=== PATIENT | male | born 1955 | race Caucasian/White ===

== ENCOUNTER 2025-02-22 13:45 | Outpatient (CLI) | payer OTHER, SELFPAY ==
--- NOTE | 2025-02-22 14:30 | NEURO_ITS ---
Impression: # Complains of numbness and pain in right lower extremity. ? # Right Posterior Tibial Neuropathy. ? # Right Superficial Peroneal sensory neuropathy. ? # Normal needle/EMG. Nerve Conduction Studies ?Stim Site NR Peak (ms) P-T Amp (?V) Site1 Site2 Delta-P (ms) Dist (cm) Evaristo (m/s) Right Sup Fibular Anti Sensory (Ant Lat Mall)??? NO RESPONSE 14 cm NR 14 cm Ant Lat Mall 16.0 Right Sural Anti Sensory (Lat Mall) Calf ? 3.6 3.8 Calf Lat Mall 3.6 16.0 44 ?Stim Site NR Onset (ms) O-P Amp (mV) Site1 Site2 Delta-0 (ms) Dist (cm) Evaristo (m/s) Right Peroneal Motor (Vastus Med) Ankle ? 3.6 4.2 Popit Ankle 9.2 42.0 46 Popit ? 12.8 2.9 Right Tibial Motor (Abd Tovar Brev) Ankle ? 6.3 2.8 Knee Ankle 10.7 44.0 41 Knee ? 17.0 1.6 F Wave Studies ?NR F-Lat (ms) L-R F-Lat (ms) Right Peroneal (Mrkrs) (EDB) ? 50.90 Right Tibial (Mrkrs) (Abd Hallucis) ? 57.74 Electromyography ?Side Muscle Nerve Root Ins Act Fibs Amp Dur Recrt Comment Right AntTibialis Dp Br Fibular L4-5 Nml Nml Nml Nml Nml Right Gastroc Tibial S1-2 Nml Nml Nml Nml Nml Right Fibularis Long Sup Br Fibular L5-S1 Nml Nml Nml Nml Nml Right Flex Dig Long Tibial L5-S2 Nml Nml Nml Nml Nml Right Ext Dig Brev Dp Br Fibular L5, S1 Nml Nml Nml Nml Nml Right QuadratusFem QuadFemoris L4-5, S1 Nml Nml Nml Nml Nml
== END 2025-02-22 13:46 | disposition home or self-care (01) ==
PROVIDERS: Visit Provider Internal Medicine
DX: M79.662 Pain in left lower leg (principal); R94.131 Abnormal electromyogram [EMG]
CPT/HCPCS: 95886; 95908